=== PATIENT | female | born 1970 | race Caucasian/White ===

== ENCOUNTER 2024-08-25 19:01 | Emergency (ER) | payer BC ==
[~2024-08-25] VITALS: Ht 165.1 cm; Wt 62.0 kg
[2024-08-25] MEDS ORDERED: ONDANSETRON 4 MG/TAB ODT PO ONE (19:30)
[2024-08-25] MEDS ORDERED: NAPROXEN 250 MG/TAB PO ONE (19:30)
[2024-08-25] MEDS ORDERED: METHOCARBAMOL 500 MG/TAB PO ONE (19:30)
[2024-08-25] MEDS ORDERED: NAPROXEN500 MG PO (20:31)
[2024-08-25] MEDS ORDERED: METHOCARBAMOL500 MG PO (20:31)
[2024-08-25 20:39] VITALS: BP 171/96
== END 2024-08-25 20:39 | disposition home or self-care (01) | DRG 552 ==
LOC: ED 19:01
DX: S16.1XXA Strain of muscle, fascia and tendon at neck level, initial encounter (principal); S63.501A Unspecified sprain of right wrist, initial encounter; V49.40XA Driver injured in collision with unspecified motor vehicles in traffic accident, initial encounter; I10 Essential (primary) hypertension